=== PATIENT | male | born 1955 | race Caucasian/White ===

== ENCOUNTER 2024-10-30 06:25 | Day surgery (SDC) | payer OTHER ==
[2024-10-24 07:49] LABS: HEMATOCRIT 43.2 % (39.0-48.0); HEMOGLOBIN 15.1 g/dL (13-16.00); MEAN CELL VOLUME 94.2 fL (80.0-100.00); PLATELET COUNT 214 K/uL (150-450); RED BLOOD COUNT 4.58 M/uL (4.00-6.00); RED CELL DISTRIBUTION WIDTH 13.7 % (11.5-14.5)
[2024-10-24 07:54] LABS: PH,URINE 7.5 (5.0-8.0); URINE APPEARANCE Clear; URINE BILIRRUBIN Negative (NEGATIVE); URINE BLOOD Negative; URINE COLOR Yellow; URINE GLUCOSE Negative (NEGATIVE); URINE KETONE Negative (NEGATIVE); URINE LEUKOCYTE Negative; URINE NITRATE Negative; URINE PROTEIN Negative (NEGATIVE); URINE UROBILINOGEN 0.2 E.U./dl
[2024-10-24 07:59] LABS: URINE RBC 6.7 uL (0.0-20.8)
[2024-10-24 08:09] LABS: URINE BACTERIA 1.2 uL (0.0-1933); URINE WBC 1.7 uL (0.0-23.2)
[2024-10-24 08:17] LABS: INR 1.05; PARTIAL THROMBOPLASTIN TIME 29.6 SECONDS (22.0-34.0); PROTHROMBIN TIME 11.4 SECONDS (9.0-11.5)
[2024-10-24 08:26] LABS: ALBUMIN 3.9 gm/dL (3.4-5.0); BILIRUBIN TOTAL 1.46 mg/dL (0.3-1.2); CALCIUM 9.6 mg/dL (8.5-10.1); CREATININE SERUM 0.71 mg/dL (0.70-1.30); GFR 110.33; GLOBULINA 3.2 G/DL (2.4-3.5); POTASSIUM 4.38 mEq/L (3.5-5.1); TOTAL PROTEIN 7.1 gm/dL (6.4-8.2)
[~2024-10-30 06:25] MED LIST: AMLODIPINE-OLM1 EAC2; HYDRODIURIL12.5 MG PO; LEVSIN/SL0.125 MG SL; LISINOPRIL10 MG PO; PEPCID40 MG PO
[2024-10-30] MEDS ORDERED: MIRALAX17 GM PO (08:08)
[2024-10-30] MEDS ORDERED: KETO10TA2 PO (08:08)
[2024-10-30] MEDS ORDERED: TYLENOL ARTHRI650 MG PO (08:08)
[2024-10-30] MEDS ORDERED: TRAMADOL HCL50 MG PO (08:08)
[2024-10-30] MEDS ORDERED: CEFAZOLIN SODIUM 1,000 MG VIAL ONE (09:18)
[2024-10-30] MEDS ORDERED: BUPIVACAINE HCL/MPF 0.5% 30ML VIAL ONE (09:18)
[2024-10-30] MEDS ORDERED: LIDOCAINE HCL 1%/EPINEPHRINE 20ML VIAL IJ ONE (09:18)
[2024-10-30] MEDS ORDERED: MORPHINE SULFATE 4 MG/ML VIAL IV ONE (14:15)
== END 2024-10-30 17:00 | disposition home or self-care (01) ==
LOC: CIR.AMB 06:25 → EDBD 07:30 → CIR.AMB 07:30
PROVIDERS: ATTEND Surgery
DX: K40.91 Unilateral inguinal hernia, without obstruction or gangrene, recurrent (principal); K40.90 Unilateral inguinal hernia, without obstruction or gangrene, not specified as recurrent; K42.0 Umbilical hernia with obstruction, without gangrene; I10 Essential (primary) hypertension
CPT/HCPCS: 49650; 49651; 49592; C1781